=== PATIENT | male | born 1965 | race Caucasian/White ===

== ENCOUNTER 2017-02-23 21:18 | Emergency (ER) | payer OTHER ==
[~2017-02-23 21:18] MED LIST: ASPIRIN ONE
[2017-02-23 21:25] VITALS: BMI 27.7
[2017-02-23] MEDS: NITROSTAT SL PRN ×2 (21:25→21:30)
[2017-02-23] MEDS ORDERED: NITROSTAT SL ONE (21:25)
[2017-02-23 21:43] LABS: BASOPHILS # (AUTO) 0.1 X10^3/uL (0.0-0.1); BASOPHILS % (AUTO) 1.2 % (0.2-1.0); EOSINOPHILS # (AUTO) 0.3 x10^3/uL (0.0-0.2); EOSINOPHILS % (AUTO) 3.4 % (0.9-2.9); HEMATOCRIT 38.4 % (42.0-54.0); HEMOGLOBIN 12.9 g/dL (13.5-18.0); LYMPHOCYTES # (AUTO) 3.6 X10^3/uL (1.3-2.9); LYMPHOCYTES % (AUTO) 34.7 % (21.0-51.0); MEAN CORPUSCULAR HEMOGLOBIN 28.1 pg (27.0-34.0); MEAN CORPUSCULAR HGB CONC 33.5 g/dL (33.0-35.0); MEAN CORPUSCULAR VOLUME 83.9 fL (80.0-100.0); MEAN PLATELET VOLUME 7.8 fL (7.4-11.0); MONOCYTES # (AUTO) 1.1 x10^3/uL (0.3-0.8); MONOCYTES % (AUTO) 10.7 % (0.0-13.0); NEUTROPHILS # (AUTO) 5.2 x10^3/uL (2.2-4.8); PLATELET COUNT 343 X10^3/uL (150.0-450.0); RED BLOOD COUNT 4.58 X10^6/uL (4.7-6.0); RED CELL DISTRIBUTION WIDTH 14.2 % (11.6-16.5); WHITE BLOOD COUNT 10.4 X10^3/uL (3.6-10.0)
[2017-02-23] MEDS ORDERED: NS 1000 ML 1,000 ML ONE (21:46)
[2017-02-23] MEDS ORDERED: NS 1000 ML 1,000 ML IV ONE (21:46)
--- NOTE | 2017-02-23 21:48 | DR.GENAD ---
HPI - PCP Primary Care Physician: NONE - HPI Comment HPI Comment: SUDDEN ONSET OF CHEST PAIN TONIGHT. IN ED WITHIN ONE HOUR. PRESSURE PAIN SEVERE, 10/10. NO HISTORY OF CAD. NON SMOKER WITH HISTORY OF HTN. PATIENT IS JUST RETIRED FROM THE [employer] THIS MONTH. - Complaint/Symptoms Chief Complaint Doctors Comments: CHEST PAIN Chief Complaint:: CHEST PAIN STARTED ABOUT 20 MINUTES GO SEVERE - Nurses notes reviewed Nurses Notes Review: Yes - Source History Provided: Patient - Mode of Arrival Mode of Arrival: Ambulatory - Timing Onset of Chief Complaint: 02/23/17 Came on: Suddenly - Duration Duration: Constant Duration: Days - Severity Severity: Moderate PMH - PMH Past Medical History: Yes Past Medical History: Hypertension Past Medical History Comment: HIGH CHOLESTEROL, Past Surgical History: No - Family History History of Family Medical Conditions: Yes Family Medical History: Diabetes Mellitus, Cancer, Hypertension - Social History Alcohol Use: Occasionally Do you use any recreational Drugs:: No Lives With: Family Lives Where: Home - infectious screening In the last 2 months have you had wt loss of >10#?: NO Have you had fever, night sweats or hemotysis?: No Have you traveled outside the country in the last 6 months?: No Isolation: Standard ROS - Review of Systems Constitutional: Weakness, Fatigue. negative: Chills, Fever Eyes: No Symptoms Reported. negative: Eye Pain, Discharge ENTM: No Symptoms Reported. negative: Ear Pain, Nose Discharge, Nose Congestion , Throat Pain Respiratoy: Short of Breath. negative: Productive Cough, Non-Productive Cough, Wheezing, Hemoptysis Cardiovascular: Chest Pain. negative: Edema, Palpitations Gastrointestinal/Abdominal: Nausea. negative: Abdominal Pain, Diarrhea, Vomiting Genitourinary: negative: Dysuria, Frequency, Hematuria Neurological: Headache, Weakness, Dizziness Musculoskeletal: No Symptoms Reported Integumentary: No Symptoms Reported Hematologic/Lymphatic: No Symptoms Reported Endocrine: No Symptoms Reported All Other Systems: Reviewed and Negative PE - Vital Signs Vitals: Pulse Rate [Apical] 64 Pulse Rate 79 Respiratory Rate 24 Blood Pressure [Left Arm] 150/96 Blood Pressure 197/118 O2 Sat by Pulse Oximetry 99 - General Limitations: No Limitations General Appearance: Alert - Head Head Exam: negative: Normal Inspection - Eyes Eye exam: Normal Appearance - ENT ENT Exam: Normal External Ear Exam External Ear Exam: Normal External Inspection TM/Canal Exam: Bilateral Normal Mouth Exam: Normal Inspection Throat Exam: Normal Inspection - Neck Neck Exam: Trachea Midline - Chest Chest Inspection: Symmetric Chest Wall Rise - Respiratory Respiratory Exam: Normal Lung Sounds Bilat Respiratory Exam: Bilateral Rhonchi, Lower Rhonchi - Cardiovascular Cardiovascular Exam: Regular Rate, Normal Rhythm, Normal Heart Sounds - Abdominal Exam Abdominal Exam: Normal Bowel Sounds, Soft. negative: Tenderness - Extremities Extremities Exam: Normal Inspection - Back Back Exam: Normal Inspection - Neurologic Neurological Exam: Alert, Oriented X3 - Psychiatric Psychiatric Exam: Normal Affect, Normal Mood - Skin Skin Exam: Normal Color MDM - Additional Information Additional Information Obtained From: Family - Differential Diagnosis Differential Diagnosis: CHEST PAIN, HTN Course - Treatment Treatment: SEE ORDERS. ASA 81MG CHEWABLE IN ED, 324MG.NTG S/L TIMES 3, PAIN RESOLVE. REPEAT CARDIAC ENZYME TROPONIN INCREASING. IN NTG ABD IV HEPARIN STARTED. PATIENT TRANSFER TO CARDIOLOGY SERVICE. - Consultation Consultation Comments: DISCUSS PATIENT WITH DR. FUNES, [facility]. HE ACCEPTED PATIENT FOR TRANSFER. - Education/Counseling Education/Counseling: Patient, Family, Education Educated On: Treatment, Diagnosis ROR - Labs Reviewed Laboratory Results Reviewed?: Yes Result Diagrams: 02/23/17 21:19 02/23/17 21:19 Laboratory: WBC 10.4 X10^3/uL (3.6-10.0) H 02/23/17 21:19 RBC 4.58 X10^6/uL (4.7-6.0) L 02/23/17 21:19 Hgb 12.9 g/dL (13.5-18.0) L 02/23/17 21:19 Hct 38.4 % (42.0-54.0) L 02/23/17 21:19 MCV 83.9 fL (80.0-100.0) 02/23/17 21:19 MCH 28.1 pg (27.0-34.0) 02/23/17 21:19 MCHC 33.5 g/dL (33.0-35.0) 02/23/17 21:19 RDW 14.2 % (11.6-16.5) 02/23/17 21:19 Plt Count 343 X10^3/uL (150.0-450.0) 02/23/17 21:19 MPV 7.8 fL (7.4-11.0) 02/23/17 21:19 Neut % 50.0 % (42.0-75.0) 02/23/17 21:19 Lymph % 34.7 % (21.0-51.0) 02/23/17 21:19 Stewart % 10.7 % (0.0-13.0) 02/23/17 21:19 Eos % 3.4 % (0.9-2.9) H 02/23/17 21:19 Baso % 1.2 % (0.2-1.0) H 02/23/17 21:19 Neut # 5.2 x10^3/uL (2.2-4.8) H 02/23/17 21:19 Lymph # 3.6 X10^3/uL (1.3-2.9) H 02/23/17 21:19 Stewart # 1.1 x10^3/uL (0.3-0.8) H 02/23/17 21:19 Eos # 0.3 x10^3/uL (0.0-0.2) H 02/23/17 21:19 Baso # 0.1 X10^3/uL (0.0-0.1) 02/23/17 21:19 Absolute Nucleated RBC 0.0 /100WBC 02/23/17 21:19 INR Target Range - 02/23/17 21:19 INR 1.03 (0.8-1.3) 02/23/17 21:19 PTT 33.9 SECONDS (22.9-36.5) 02/23/17 21:19 PTT Comment - 02/23/17 21:19 D-Dimer < 100 ng/mL (0-400) 02/23/17 21:31 Sodium 140 mmol/L (136-145) 02/23/17 21:19 Corrected Sodium 140 mmol/L (136-145) 02/23/17 21:19 Potassium 3.6 mmol/L (3.5-5.1) 02/23/17 21:19 Chloride 103 mmol/L (98-107) 02/23/17 21:19 Carbon Dioxide 27.5 mmol/L (21-32) 02/23/17 21:19 BUN 16 mg/dL (7-18) 02/23/17 21:19 Creatinine 1.31 mg/dL (0.70-1.30) H 02/23/17 21:19 Est GFR (MDRD) Af Amer > 60 (>60) 02/23/17 21:19 Est GFR (MDRD) Non-Af > 60 (>60) 02/23/17 21:19 Glucose 113 mg/dL (65-99) H 02/23/17 21:19 Calcium 8.9 mg/dL (8.5-10.1) 02/23/17 21:19 Corrected Calcium TNP 02/23/17 21:19 Magnesium 1.9 mg/dL (1.7-2.9) 02/23/17 21:19 Total Bilirubin 0.40 mg/dL (0.2-1.0) 02/23/17 21:19 AST 18 Units/L (15-37) 02/23/17 21:19 ALT 33 Units/L (12-78) 02/23/17 21:19 Alkaline Phosphatase 88 Units/L (46-116) 02/23/17 21:19 Creatine Kinase 173 Units/L (39-308) 02/24/17 01:40 CK-MB (CK-2) 2.4 ng/mL (0-4.0) 02/24/17 01:40 CK/CKMB % Calc 1.4 % (<4) 02/24/17 01:40 Troponin I 1.30 ng/mL (0-1.5) 02/24/17 01:40 Total Protein 7.9 g/dL (6.4-8.2) 02/23/17 21:19 Albumin 4.2 g/dL (3.4-5.0) 02/23/17 21:19 Globulin 3.7 g/dL (2.5-4.5) 02/23/17 21:19 Albumin/Globulin Ratio 1.1 Ratio (1.1-2.1) 02/23/17 21:19 H. pylori IgG Antibody Negative (NEGATIVE) 02/23/17 21:19 Influenza Type A (PCR) Negative (NEGATIVE) 02/23/17 23:01 Influenza Type B (PCR) Negative (NEGATIVE) 02/23/17 23:01 - XRAY XRAY Interpreted by: Radiologist XRAY Findings: REPORT DISCUSS WITH PATIENT. - EKG Rhythm: NSR (EKG NOTED.) ST: Ischemia - Diagnosis Discharge Problem: Unstable angina Chest pain Qualifiers: Chest pain type: precordial pain Qualified Code(s): R07.2 - Precordial pain HTN (hypertension) Qualifiers: Hypertension type: essential hypertension Qualified Code(s): I10 - Essential ( primary) hypertension - Discharge Plan Disposition: XF [facility] Condition: Stable - Follow ups/Referrals Follow ups/Referrals: NFD,None [Primary Care Provider] - 3 days - Instructions
[2017-02-23] MEDS ORDERED: ASPIRIN PO SCH (22:00)
[2017-02-23 22:02] LABS: ALANINE AMINOTRANSFERASE 33 Units/L (12-78); ALBUMIN 4.2 g/dL (3.4-5.0); ALKALINE PHOSPHATASE 88 Units/L (46-116); ASPARTATE AMINO TRANSFERASE 18 Units/L (15-37); BLOOD UREA NITROGEN 16 mg/dL (7-18); CALCIUM 8.9 mg/dL (8.5-10.1); CARBON DIOXIDE 27.5 mmol/L (21-32); CHLORIDE 103 mmol/L (98-107); COR NA(FOR HYPERGLY) 140 mmol/L (136-145); CREATININE 1.31 mg/dL (0.70-1.30); MAGNESIUM 1.9 mg/dL (1.7-2.9); SODIUM 140 mmol/L (136-145); TOTAL PROTEIN 7.9 g/dL (6.4-8.2); eGFR BLACK RACES > 60 (>60); eGFR NON BLACK RACES > 60 (>60)
[2017-02-23 22:10] LABS: CKMB % 0.6 % (<4); CREATINE KINASE 176 Units/L (39-308); CREATINE KINASE MB < 1.0 ng/mL (0-4.0); TROPONIN I < 0.02 ng/mL (0-1.5)
--- NOTE | 2017-02-23 22:18 | RAD ---
HISTORY: 51-year-old male with chest pain. Study: Frontal view of the chest. Comparison: None. Findings: The trachea is midline. The cardiac silhouette is enlarged. The lungs are clear without focal conso lidation, effusion or pneumothorax. Soft tissues are unremarkable. Osseous structures are unremarkab le. IMPRESSION: 1. Cardiomegaly without other acute cardiopulmonary finding. Reported By:
[2017-02-24] MEDS ORDERED: DUONEB 0.5 MG/3 MG NEB ONE (00:44)
[2017-02-24] MEDS ORDERED: SOLU-Medrol 125 MG VIAL IVP ONE (00:44)
[2017-02-24 02:10] LABS: CKMB % 1.4 % (<4); CREATINE KINASE MB 2.4 ng/mL (0-4.0); TROPONIN I 1.3 ng/mL (0-1.5)
[2017-02-24] MEDS ORDERED: ZOFRAN INJ 4 MG VIAL ONE (02:17)
[2017-02-24] MEDS ORDERED: MORPHINE SULFATE INJ 4 MG ONE (02:18)
[2017-02-24] MEDS ORDERED: ZOFRAN INJ 4 MG VIAL IVP ONE (02:20)
[2017-02-24] MEDS ORDERED: MORPHINE SULFATE INJ 4 MG IVP ONE (02:20)
[2017-02-24] MEDS ORDERED: NITROGLYCERIN IV PREMIX 50 MG 50 MG/250 ML BAG IV ONE (02:24)
[2017-02-24] MEDS ORDERED: NS 1000 ML 1,000 ML ONE (02:29)
[2017-02-24] MEDS ORDERED: NITROGLYCERIN IV PREMIX 50 MG 50 MG/250 ML BAG IV PRN (02:31)
[2017-02-24] MEDS ORDERED: HEPARIN SODIUM IN D5W 25,000 UNITS/500 ML BAG IV PRN (02:31)
[2017-02-24] MEDS ORDERED: DILAUDID INJ IVP ONE (02:33)
[2017-02-24] MEDS ORDERED: HEPARIN SODIUM INJ 5000 UNITS ONE (02:39)
[2017-02-24] MEDS ORDERED: HEPARIN SODIUM IN D5W 25,000 UNITS/500 ML BAG IV ONE (02:39)
[2017-02-24] MEDS ORDERED: DILAUDID INJ ONE (02:49)
[2017-02-24] MEDS ORDERED: HEPARIN SODIUM INJ 5000 UNITS IVP ONE (02:50)
[2017-02-24 02:55] VITALS: BP 150/96
== END 2017-02-24 03:35 | disposition short-term general hospital (02) ==
LOC: ER 21:47
DX: I20.0 Unstable angina (principal); R07.2 Precordial pain; I10 Essential (primary) hypertension; R07.89 Other chest pain
CPT/HCPCS: 36415; 71010; 80053; 82550; 82553; 83735; 84484; 85025; 85378; 85610; 85730; 86677; 87502; 93005; 93010; 93041; 96365; 96367; 96374; 96375; 99285; A4222; J1170; J1644; J2270; J2405